=== PATIENT | female | born 1960 | race Caucasian/White ===

== ENCOUNTER 2019-11-07 23:12 | Inpatient (IN) | payer MEDICARE, MEDICAID, SELFPAY ==
--- NOTE | ~2019-11-07 | XR_ITS ---
XR chest 1V portable 11/08/2019 01:13 Indication: Altered mental status Procedure: AP view of the chest Comparison: Comparison to multiple prior studies sequentially, with oldest reviewed study dated 12/2014. Findings: Heart size normal. No focal air space disease, pulmonary edema, pleural effusion or suspect ed pneumothorax. No acute osseous abnormality. There are cholecystectomy clips. There is a TIPS shunt . Impression: 1: No acute cardiopulmonary disease. Reviewed, dictated and finalized at location A. Impression: 1: No acute cardiopulmonary disease.
--- NOTE | ~2019-11-07 | CT_ITS ---
EXAMINATION: CT abdomen pelvis wo con DATE: 11/08/2019 01:22 INDICATION: Altered mental status. Vomiting. TECHNIQUE: Computed tomography (CT) of the abdomen and pelvis was performed without intravenous contr ast. The dose-length product was 408.59 mGy-cm. Automated exposure control and iterative reconstructi on technique were employed. COMPARISON: CT dated 07/11/2019 FINDINGS: There is right middle lobe and lower lobe atelectasis. Heart size normal. No significant pl eural or pericardial effusion. There is cirrhosis of the liver. There is splenomegaly. Moderate ascites. There is a TIPS shunt. There are changes of gastric bypass surgery. Nonobstructive bowel gas pattern. Nonspecific fluid josh ection left groin measuring 6.5 x 4.3 x 1.4 cm, significantly decreased in size compared with prior e xamination. Status post cholecystectomy. No renal stones. No hydronephrosis. Mild urinary bladder dis tention. Status post hysterectomy. No free air. Segments of colon appear mildly thick-walled, althoug h this is likely attributable to underdistention rather than colitis. IMPRESSION: 1. Cirrhosis of the liver with splenomegaly, consistent with portal hypertension. TIPS shunt present. 2: Moderate ascites. Reviewed, dictated and finalized at location A. IMPRESSION: 1. Cirrhosis of the liver with splenomegaly, consistent with portal hypertensio n. TIPS shunt present. 2: Moderate ascites.
--- NOTE | ~2019-11-07 | XR_ITS ---
XR abdomen NG/feed tube insert INDICATION: Evaluate NG tube position. TECHNIQUE: Limited KUB perform for evaluating NG tube . COMPARISON: 05/24/2016 FINDINGS: NG tube tip in the stomach. There are cholecystectomy clips. There is a no shunt. Visualize d bowel gas pattern is unremarkable. IMPRESSION: 1: NG tube tip in the stomach. Reviewed, dictated and finalized at location A.
--- NOTE | ~2019-11-07 | CT_ITS ---
EXAMINATION: CT brain wo con DATE: 11/08/2019 01:22 INDICATION: Altered mental status. Vomiting. TECHNIQUE: Computed tomography (CT) of the head was performed without intravenous contrast. The dose- length product was 605.33 mGy-cm. The mA was adjusted according to patient size. Iterative reconstruc tion technique was employed. COMPARISON: CT dated 08/08/2019 FINDINGS: No acute intracranial hemorrhage, infarction, mass or mass effect. No ventriculomegaly or m idline shift. There are scattered mild periventricular and subcortical white matter changes, most lik collette related to small vessel ischemic disease (microangiopathy). No ventriculomegaly or midline shift. Intracranial atherosclerosis. Paranasal sinuses and mastoids are pneumatized. No depressed skull fra ctures. IMPRESSION: 1. No acute intracranial abnormality. Reviewed, dictated and finalized at location A.
[2019-11-07 23:10] VITALS: BP 108/64; PULSE 94; RESP 20; TEMP 36.6; O2SAT 100
--- NOTE | 2019-11-07 23:14 | ED.AMS ---
HPI - Altered Mental Status General Chief Complaint: Altered Mental Status Stated Complaint: n/v/alt mental Time Seen by Provider: 11/07/19 23:14 Source: patient and RN notes reviewed Mode of arrival: EMS Limitations: other (Poor historian) History of Present Illness HPI narrative: A 59 y/o female presents to the ED via EMS d/t AMS. The pt reports N/V and a diffuse YOUNG beginning today. The pt is a poor historian and is unable to state how long she has been having AMS for. She denies any SOB, CP, ABD pain, and any other medical complaints at this time. MD complaint: altered mental status Onset (ago): unknown Context: unknown Associated symptoms: headaches (diffuse) and nausea/vomiting Related Data Home Medications Medication Instructions Recorded Confirmed cyanocobalamin (vitamin B-12) 1,000 mcg IM MONTHLY 07/09/19 11/08/19 ergocalciferol (vitamin D2) 50,000 unit PO WEEKLY 07/09/19 11/08/19 hydrocodone-acetaminophen 1 tablet PO Q6H PRN 07/09/19 11/08/19 levothyroxine 112 mcg PO DAILY 07/09/19 11/08/19 ondansetron 8 mg PO Q12H PRN 07/09/19 11/08/19 spironolactone 100 mg PO QAM 07/09/19 11/08/19 valacyclovir 500 mg PO DAILY 07/09/19 11/08/19 furosemide 40 mg PO BID 07/15/19 11/08/19 rifaximin 550 mg PO BID 07/15/19 11/08/19 acetaminophen 500 mg PO Q6H PRN 11/08/19 diphenhydramine HCl 25 mg PO HS PRN 11/08/19 diphenhydramine HCl [Benadryl] 25 mg PO Q6H PRN 11/08/19 11/08/19 escitalopram oxalate 10 mg PO DAILY 11/08/19 11/08/19 lactulose 30 ml PO TID 11/08/19 11/08/19 melatonin 5 mg PO HS PRN 11/08/19 11/08/19 Allergies Allergy/AdvReac Type Severity Reaction Status Date / Time cephalexin Allergy Unknown Verified 09/25/16 11:28 gadobenic acid Allergy Unknown Verified 07/10/19 09:59 [From CONTRAST-MRI] Iodinated Contrast Media Allergy Unknown Verified 07/10/19 09:59 iohexol Allergy Unknown Verified 07/10/19 09:59 [From CONTRAST - CT, XRAY] ketorolac Allergy Unknown Verified 09/25/16 11:28 Penicillins Allergy Unknown Verified 09/25/16 11:28 Sulfa (Sulfonamide Allergy Unknown Verified 09/25/16 11:28 Antibiotics) sulfamethoxazole Allergy Unknown Verified 09/25/16 11:28 trimethoprim Allergy Unknown Verified 09/25/16 11:28 Review of Systems Review of Systems: All systems reviewed & are unremarkable except as noted in HPI and below Constitutional: Constitutional: Denies fatigue and Denies fever(s) Eyes: Eyes: Denies blurry vision ENT: Denies nasal congestion and Denies sinus pressure Cardiovascular: Cardiovascular: Denies chest pain, Denies rapid heart rate, Denies leg edema and Denies dyspnea Respiratory: Respiratory: Denies hemoptysis and Denies dyspnea Gastrointestinal: Gastrointestinal: Denies abdominal pain, Denies melena, Reports nausea and Reports vomiting Musculoskeletal: Musculoskeletal: Denies numbness Neurologic: Denies Abnormal speech present, Reports headache(s) (diffuse), Denies focal weakness, Denies numbness and Reports other (AMS) Endocrine: Endocrine: Denies fatigue PMFSH Past Medical History Medical History Anemia Anxiety Arthritis Bronchitis chronic CAD (coronary artery disease) CHF (congestive heart failure) Depression Early cataracts, bilateral GERD (gastroesophageal reflux disease) GI bleed History of heart attack Hx of cataract Hypothyroid Liver disease Lupus erythematosus ANAYA (nonalcoholic steatohepatitis) (Unknown) Psoriasis Rectocele Shingles Surgical History Surgical History H/O rectocele repair History of bladder surgery bladder tie up History of cholecystectomy History of gastric bypass History of hysterectomy History of tonsillectomy Hx of cardiac cath Previous section Social History Social History Smoking status: Never smoker Alcohol intake: never Substance use: never Gender identity (if verbal
--- NOTE | 2019-11-07 23:19 | ECG_ITS ---
Measurements Intervals [place] Rate: 94 P: 71 GA: 172 QRS: -83 QRSD: 146 T: 66 QT: 409 QTc: 512 Interpretive Statements SINUS RHYTHM RIGHT BUNDLE BRANCH BLOCK LEFT ANTERIOR FASCICULAR BLOCK CANNOT RULE OUT SEPTAL INFARCT, AGE INDETERMINATE BASELINE WANDER- I, AVL ABNORMAL ECG Electronically Signed On 11-08-2019 7:58:48 CDT by Amauri Petit D.O.
[2019-11-07] MEDS: ONDANSETRON INJ 4 MG/2 ML VIAL (23:26)
[2019-11-07] MEDS: SODIUM CHLORIDE 0.9% IV 2,000 ML 999 ML IV CONT (23:26)
[2019-11-07 23:32] LABS: Basophils Absolute Auto 0.1 K/mm3 (0.0-0.1); Basophils Percent Auto 0.6 % (0.2-1.2); Eosinophils Absolute Auto 0.1 K/mm3 (0-0.3); Eosinophils Percent Auto 0.6 % (0-4.4); Hematocrit 41.8 % (37.0-47.0); Hemoglobin 14.1 g/dL (12.0-15.0); Immature Granulocyte Absolute 0.04 K/mm3 (0.00-0.031); Immature Granulocyte Percent A 0.5 % (0-0.5); Lymphocytes Absolute Auto 0.71 K/mm3 (0.9-3.2); Lymphocytes Percent Auto 8.9 % (18.3-44.2); Mean Corpuscular HGB Conc 33.7 g/dl (32-36); Mean Corpuscular Hemoglobin 31.1 pg (26-34); Mean Corpuscular Volume 92.3 fl (80-100); Monocytes Absolute Auto 0.6 K/mm3 (0.1-0.6); Monocytes Percent Auto 7.4 % (2.6-8.5); Neutrophils Absolute Auto 6.6 K/mm3 (1.3-6.7); Platelet Count Result 118 k/mm3 (150-375); Red Blood Count 4.53 M/mm3 (4.2-5.4); Red Cell Distribution Width 15.4 % (11.5-14.5)
[2019-11-07] MEDS: CALCIUM GLUCONATE 1,000 MG/10 ML VIAL 1000 MG IV PUSH (23:39)
[2019-11-07 23:56] LABS: Alveolar/Arterial O2 Gradient 19.3 mmHg; Base Excess ABG -7.2 mEq/l (+/-2.0); Fractional Inspired Oxygen 21 %; HCO3 ABG 15.2 mEq/l (22.0-26.0); Oxygen Content ABG 18.1 %vol (16.0-22.0); Oxygen Saturation ABG 97.9 % (95.0-100.0); Oxyhemoglobin 96.3 % THb (90.0-100.0); PO2 ABG 102.2 mmHg (80.0-100.0); PO2 FiO2 Ratio Arterial Blood 4.87 %; Total Hemoglobin 13.3 g/dL (12.0-18.0); pH ABG 7.428 (7.350-7.450)
[2019-11-07 23:57] LABS: Device ROOM AIR; Modified Allen's Test Unable to perform; PCO2 ABG 23.6 mmHg (35.0-45.0); Site Drawn RIGHT RADIAL
[2019-11-08] VITALS (11 sets, daily range): BP systolic 105–122; BP diastolic 51–60; PULSE 77–96; RESP 16–20; TEMP 36.2–37.1; O2SAT 97–100; BMI 24.7
[2019-11-08] MEDS: PROMETHAZINE HCL 25 MG/ML AMPUL 12.5 MG IV PUSH
[2019-11-08 00:34] LABS: Ammonia 266 umol/L (9-30)
[2019-11-08 00:36] LABS: Alanine Aminotransferase 46 U/L (4-35); Albumin Level 3.4 g/dL (3.5-5.1); Alkaline Phosphatase 144 U/L (38-126); Aspartate Amino Transferase 47 U/L (14-36); Bilirubin,Total 1.9 mg/dL (0.2-1.3); Blood Urea Nitrogen 31 mg/dL (7-17); Calcium 8.6 mg/dL (8.4-10.2); Carbon Dioxide 19 mmol/L (22-30); Chloride 103 mmol/L (98-107); Estimated Glomerular Filt Rate 42; Glucose 205 mg/dL (65-105); Potassium 5.9 mmol/L (3.4-5.0); Sodium 134 mmol/L (137-145)
[2019-11-08 00:37] LABS: Add Urine Microscopic? NO; Appearance Urine Clear (Clear); Bilirubin Urine Negative (Negative); Blood Urine Negative (Negative); Color Urine Yellow (Yellow); Glucose Urine UA Negative (Negative); Ketones Urine Negative (Negative); Leukocyte Esterase Ur Negative LEU/UL (Negative); Nitrate Urine Negative (Negative); Protein Urine Negative (Negative); Specific Grav Ur 1.012 (1.001-1.035); Urobilinogen Urine Negative mg/dL (<2.0)
[2019-11-08 00:39] LABS: Lactic Acid Reflex 4.2 mmol/L (0.7-2.1)
[2019-11-08 00:44] LABS: Amphetamine Screen Urine Negative (Negative); Barbiturate Screen Urine Negative (Negative); Benzodiazepines Screen Urine Negative (Negative); Cannabinoid Screen Urine Negative (Negative); Cocaine Screen Urine Negative (Negative); Methadone Screen Urine Negative (Negative); Opiate Screen Urine Negative (Negative); Phencyclidine Screen Urine Negative (Negative)
[2019-11-08 00:48] LABS: Troponin I < 0.012 ng/mL (0.000-0.034)
[2019-11-08 01:05] LABS: INR 1.5; Prothrombin Time 17.7 Seconds (11.1-14.7)
[2019-11-08 01:06] LABS: Partial Thromboplastin Time 26.9 SECONDS (22.3-36.8)
[2019-11-08] MEDS: SODIUM CHLORIDE 0.9% IV 1,000 ML 999 ML IV CONT (01:56)
[2019-11-08] MEDS: DEXTROSE 50% 25 GM/50 ML SYRINGE IV PUSH (01:56)
[2019-11-08] MEDS: SODIUM BICARBONATE 8.4% 50 MEQ/50 ML VIAL IV PUSH (01:57)
[2019-11-08] MEDS: INSULIN HUMAN REGULAR (*BKC) 100 UNITS/ML 10 UNITS IV PUSH (01:57)
[2019-11-08 02:33] LABS: Glucose Point of Care 263 (65-105)
[2019-11-08 02:33] LABS: Glucose Point of Care 207 (65-105)
[2019-11-08 03:21] LABS: Reflex Lactic Acid Yes or No Add Lactic
[2019-11-08 04:35] LABS: Lactic Acid 3.2 mmol/L (0.7-2.1)
[2019-11-08] MEDS: LACTULOSE 20 GM/30 ML UDC PO ×4 (04:46→17:14)
--- NOTE | 2019-11-08 04:57 | PC.NURSE ---
This patient, Kelle Hernadez, was admitted to IMU Room 232-01. Patient/family oriented to hospital policies and general routines including ID bracelet, bed and alarms, visiting hours, pain management, procedures, bathroom and other care routines, personal items, smoking policy, room service/diet, and visiting hours. Valuables list has been completed. Information on how to activate the Rapid Response Team has been discussed. Patient/Family are encouraged to report perceived risks to care and to ask questions if they do not understand what they are told or what they should do.
[2019-11-08 05:03] LABS: Ammonia 39 umol/L (9-30)
[2019-11-08] MEDS: SODIUM CHLORIDE 0.9% IV 1,000 ML 125 ML IV CONT (05:33)
[2019-11-08 07:01] LABS: Glucose Point of Care 177 (65-105)
--- NOTE | 2019-11-08 08:56 | PM.IMHP ---
H&P: HPI History of Present Illness Chief complaint: HEPATIC ENCEPHALOPATHY,ACUTE RENAL FAILURE Narrative: Date and Time of Service of History & Physical: November 08, 2019 at 8:45 a.m. Date and Time of Admission Order: November 08, 2019 at 3:19 a.m.. Chief Complaint: Altered mental status, nausea, vomiting, abdominal pain. History of present Illness: Kelle Hernadez is a 59 year old female with known cirrhosis secondary to ANAYA, CAD, CHF, GERD, hypothyroidism, and lupus was brought to the emergency by EMS from home due to altered mental status, nausea, vomiting and abdominal pain. On presentation to the emergency room, patient was unable to give much information. She was noted to have significantly elevated ammonia receiving dose of lactulose in the ER. She was also noted to have elevated potassium with appropriate treatment given. Patient is now the IMU and able to recall all information leading to her hospitalization. Patient reports she developed headache approximately 4:00 p.m. yesterday. At 6:00 p.m. she decided to go to bed. At that time she felt sick and having abdominal pain, nausea vomiting. She was unable to make it to the restroom but use bedside commode instead. She required help from her to get to the bedside commode. She reports having diarrhea at that time. Of note, she had had 5 bowel movements in the morning to not take any lactulose during the day as a result. After using bedside commode, her helped her to the living room where she remained for 1 hour. She then tried to return to bed when she developed nausea and vomiting once again. wanted to call EMS with patient initially refusing but then she decided to have her call. She reports no recent fever, chills or cough. No chest pain or shortness of breath. She currently has been no abdominal pain, nausea or vomiting. She is thirsty. NG tube was placed in the ER patient would like removed this time period and urinary symptoms. She does report she has been follow with gastroenterology at [facility] and was last seen at the end of September 2019. She does have history of TIPS procedure. Given her findings, she was admitted for further evaluation and treatment. Review of Systems Review of Systems: All systems reviewed & are unremarkable except as noted in HPI and below Constitutional: Constitutional: Denies chills and Denies fever(s) Eyes: Eyes: Denies blurry vision and Denies diplopia ENT: Denies dysphagia, Denies nasal congestion and Denies nasal discharge Cardiovascular: Cardiovascular: Denies chest pain and Denies palpitations Respiratory: Respiratory: Denies cough and Denies dyspnea Gastrointestinal: Gastrointestinal: Reports abdominal pain (At time of presentation but now resolved), Reports nausea (At time of presentation but now resolved) and Reports vomiting (At time of presentation but now resolved) Genitourinary: Genitourinary: Denies hematuria, Denies nocturia and Denies dysuria Musculoskeletal: Musculoskeletal: Reports no additional musculoskeletal complaints Integumentary/Breasts: Skin/Breast: Denies rash Neurologic: Reports headache(s) (yesterday but none now) Psychiatric: Psychiatric: Denies anxiety, Denies confusion and Denies depression Endocrine: Endocrine: Reports no additional endocrine complaints Hematologic/Lymphatic: Hematologic/Lymphatic: Reports no additional hematologic/lymphatic complaints Allergic/Immunologic: Allergic/Immunologic: Reports no additional allergic/immunologic complaints [facility] Past Medical History Medical History (Updated 11/08/19 @ 09:16 by Joanna Corona MD) Anemia Anxiety Arthritis Bronchitis chronic CAD (coronary artery disease) CHF (congestive heart failure) Depression Early cataracts, bilateral GERD (gastroesophageal reflux disease) GI bleed History of heart attack Hx of cataract Hypothyroid Liver disease Lupus erythematosus ANAYA (nonalcoholic steatohep
[2019-11-08] MEDS: rifAXIMin 550 MG TABLET PO ×2 (09:33→17:14)
[2019-11-08] MEDS: LEVOTHYROXINE SODIUM 112 MCG TABLET PO (09:34)
[2019-11-08] MEDS: ESCITALOPRAM OXALATE 10 MG TABLET PO (09:34)
[2019-11-08] MEDS: VALACYCLOVIR HCL 500 MG TABLET PO (09:34)
[2019-11-08] MEDS: FAMOTIDINE 20 MG TABLET PO ×2 (09:53→21:23)
[2019-11-08 11:13] LABS: Blood Urea Nitrogen 24 mg/dL (7-17); Calcium 7.7 mg/dL (8.4-10.2); Carbon Dioxide 16 mmol/L (22-30); Chloride 107 mmol/L (98-107); Estimated CRCL calculation 33 ml/min; Estimated Glomerular Filt Rate 46; Glucose 380 mg/dL (65-105); Potassium 4.8 mmol/L (3.4-5.0); Sodium 134 mmol/L (137-145)
[2019-11-08 14:00] LABS: Glucose Point of Care 334 (65-105)
--- NOTE | 2019-11-08 14:56 | PC.NURSE ---
This patient, Kelle Hernadez, was transferred to [ [address] [place] [address]] on 11/08/19 at 1456. Personal belongings sent with patient. Belongings list checked and signed with receiving [ ]. Report given to [ridge [email or web address] ]. Appropriate documentation sent with patient.
[2019-11-08] MEDS: SODIUM CHLORIDE 0.9% IV 1,000 ML 75 ML IV CONT (15:01)
--- NOTE | 2019-11-08 15:01 | PC.NURSE ---
This patient, Kelle Hernadez, was received from IMU on 11/08/19 at 1501. Personal belongings list checked and signed. Patient/family oriented to unit policies and routines
[2019-11-08 17:29] LABS: Glucose Point of Care 178 (65-105)
[2019-11-08 21:40] LABS: Glucose Point of Care 222 (65-105)
[2019-11-09] MEDS: SODIUM CHLORIDE 0.9% IV 1,000 ML 75 ML IV CONT (04:28)
[2019-11-09 05:20] LABS: Ammonia < 9 umol/L (9-30)
[2019-11-09 05:21] LABS: Lactic Acid 1.2 mmol/L (0.7-2.1)
[2019-11-09 05:24] LABS: Alanine Aminotransferase 45 U/L (4-35); Albumin Level 2.5 g/dL (3.5-5.1); Alkaline Phosphatase 102 U/L (38-126); Aspartate Amino Transferase 48 U/L (14-36); Bilirubin,Total 1.7 mg/dL (0.2-1.3); Blood Urea Nitrogen 20 mg/dL (7-17); Calcium 7.6 mg/dL (8.4-10.2); Carbon Dioxide 18 mmol/L (22-30); Chloride 108 mmol/L (98-107); Estimated CRCL calculation 43 ml/min; Estimated Glomerular Filt Rate > 60; Glucose 140 mg/dL (65-105); Potassium 4.4 mmol/L (3.4-5.0); Sodium 131 mmol/L (137-145)
[2019-11-09 06:00] VITALS: BP 112/59; PULSE 67; RESP 16; TEMP 36.1; O2SAT 100
[2019-11-09] MEDS: LEVOTHYROXINE SODIUM 112 MCG TABLET PO (06:42)
[2019-11-09 07:05] LABS: Basophils Absolute Auto 0.1 K/mm3 (0.0-0.1); Basophils Percent Auto 0.9 % (0.2-1.2); Eosinophils Absolute Auto 0.2 K/mm3 (0-0.3); Eosinophils Percent Auto 2.6 % (0-4.4); Hematocrit 31.7 % (37.0-47.0); Hemoglobin 10.7 g/dL (12.0-15.0); Immature Granulocyte Absolute 0.02 K/mm3 (0.00-0.031); Immature Granulocyte Percent A 0.3 % (0-0.5); Lymphocytes Absolute Auto 1.26 K/mm3 (0.9-3.2); Lymphocytes Percent Auto 19.4 % (18.3-44.2); Mean Corpuscular HGB Conc 33.8 g/dl (32-36); Mean Corpuscular Hemoglobin 31.5 pg (26-34); Mean Corpuscular Volume 93.2 fl (80-100); Mean Platelet Volume 10.7 fl (7.4-10.4); Monocytes Absolute Auto 0.8 K/mm3 (0.1-0.6); Neutrophils Absolute Auto 4.2 K/mm3 (1.3-6.7); Neutrophils Percent Auto 64.8 % (45.5-73.1); Platelet Count Result 78 k/mm3 (150-375); Red Cell Distribution Width 15.5 % (11.5-14.5); White Blood Count 6.5 K/mm3 (4.5-10.0)
[2019-11-09 07:40] LABS: Glucose Point of Care 109 (65-105)
[2019-11-09] MEDS: LACTULOSE 20 GM/30 ML UDC PO ×3 (09:04→16:57)
[2019-11-09] MEDS: rifAXIMin 550 MG TABLET PO ×2 (09:05→16:57)
[2019-11-09] MEDS: VALACYCLOVIR HCL 500 MG TABLET PO (09:05)
[2019-11-09] MEDS: ESCITALOPRAM OXALATE 10 MG TABLET PO (09:05)
[2019-11-09] MEDS: FAMOTIDINE 20 MG TABLET PO ×2 (09:05→20:25)
--- NOTE | 2019-11-09 10:04 | PM.IMPN ---
Progress Note: A&P Assessment and Plan (1) Acute hepatic encephalopathy: Code(s): K72.00 - Acute and subacute hepatic failure without coma Status: Resolved Assessment and Plan: Suspect result of not taking lactulose on day of presentation. Ammonia level now less than 9 with patient on home lactulose. Continue home rifaximin. Mental status back to normal. Now on low-sodium diet. Will continue to monitor but unable to discharge today as now has 1 of 2 positive blood cultures. (2) Acute hyperkalemia: Code(s): E87.5 - Hyperkalemia Status: Acute Assessment and Plan: Potassium 5.9 on admission. Did receive IV calcium carbonate and IV sodium bicarbonate in addition to lactulose. Potassium now stable at 4.4. Will monitor while here. (3) Acute renal failure (ARF): Qualifiers: Acute renal failure type: unspecified Qualified Code(s): N17.9 - Acute kidney failure, unspecified Code(s): N17.9 - Acute kidney failure, unspecified Status: Acute Assessment and Plan: Resolved. Creatinine 0.90 today. Resume home furosemide and spironolactone to prevent problems with cirrhosis and ascites. Stop IV fluids. will continue to monitor. (4) Bacteremia: Code(s): R78.81 - Bacteremia Status: Acute Assessment and Plan: Blood cultures drawn on admission due to altered mental status. Patient with past history of coagulase-negative staph infection in June 2019. One of 2 blood cultures currently positive for gram-positive cocci in clusters. IV vancomycin started. Await final culture results. Advised patient possible contaminant but also possible infection. If needed, will consult Infectious Disease. (5) Cirrhosis: Onset Date: Unknown Qualifiers: Ascites presence: with ascites Hepatic cirrhosis type: unspecified hepatic cirrhosis Qualified Code(s): K74.60 - Unspecified cirrhosis of liver; R18.8 - Other ascites Code(s): K74.60 - Unspecified cirrhosis of liver Status: Acute Assessment and Plan: Result of ANAYA. Has had TIPS procedure. Does follow with gastroenterology at [facility]. Treatment of acute issues as noted above. Continuing lactulose and rifaximin. Restarting diuretics as noted. (6) CHF (congestive heart failure): Qualifiers: Heart failure type: diastolic Heart failure chronicity: chronic Qualified Code(s): I50.32 - Chronic diastolic (congestive) heart failure Code(s): I50.9 - Heart failure, unspecified Status: Acute Assessment and Plan: No exacerbation at this time. Restart home furosemide and spironolactone. Remains on room air. Will monitor. (7) CAD (coronary artery disease): Qualifiers: Coronary Disease-Associated Artery/Lesion type: [place] vs. transplanted heart: [place] heart Associated angina: without angina Qualified Code(s): I25.10 - Atherosclerotic heart disease of [place] coronary artery without angina pectoris Code(s): I25.10 - Atherosclerotic heart disease of [place] coronary artery without angina pectoris Status: Acute Assessment and Plan: No acute issue. Stable. Will monitor. (8) GERD (gastroesophageal reflux disease): Qualifiers: Esophagitis presence: esophagitis presence not specified Qualified Code(s): K21.9 - Gastro-esophageal reflux disease without esophagitis Code(s): K21.9 - Gastro-esophageal reflux disease without esophagitis Status: Acute Assessment and Plan: Not on medication at home. Will continue Pepcid while here. (9) Hypothyroid: Qualifiers: Hypothyroidism type: unspecified Qualified Code(s): E03.9 - Hypothyroidism, unspecified Code(s): E03.9 - Hypothyroidism, unspecified Status: Acute Assessment and Plan: Will continue home levothyroxine. (10) DVT prophylaxis: Code(s): Z29.9 - Encounter for prophylactic m
[2019-11-09] MEDS: FUROSEMIDE 40 MG TABLET PO ×2 (10:44→16:56)
[2019-11-09] MEDS: SPIRONOLACTONE 50 MG TABLET 100 MG PO (12:36)
[2019-11-09] MEDS: INSULIN ASPART (*BKC) 100 UNITS/ML SUB-Q (12:45)
[2019-11-09 13:35] LABS: Glucose Point of Care 250 (65-105)
[2019-11-09 14:00] VITALS: BP 125/58; PULSE 87; RESP 16; TEMP 36.9; O2SAT 100
[2019-11-09 17:19] LABS: Glucose Point of Care 117 (65-105)
[2019-11-09 20:00] VITALS: PULSE 87; RESP 16; O2SAT 100
[2019-11-09 20:36] LABS: Glucose Point of Care 188 (65-105)
[2019-11-09 22:00] VITALS: BP 109/57; PULSE 83; RESP 16; TEMP 36.9; O2SAT 98
[2019-11-10 05:49] LABS: Alanine Aminotransferase 46 U/L (4-35); Albumin Level 2.3 g/dL (3.5-5.1); Alkaline Phosphatase 100 U/L (38-126); Aspartate Amino Transferase 48 U/L (14-36); Bilirubin,Total 2.3 mg/dL (0.2-1.3); Blood Urea Nitrogen 15 mg/dL (7-17); Calcium 7.6 mg/dL (8.4-10.2); Carbon Dioxide 21 mmol/L (22-30); Chloride 104 mmol/L (98-107); Estimated CRCL calculation 43 ml/min; Estimated Glomerular Filt Rate > 60; Glucose 98 mg/dL (65-105); Potassium 3.9 mmol/L (3.4-5.0); Sodium 128 mmol/L (137-145)
[2019-11-10 06:00] VITALS: BP 105/55; PULSE 58; RESP 16; TEMP 36.5; O2SAT 95
[2019-11-10] MEDS: LEVOTHYROXINE SODIUM 112 MCG TABLET PO (06:14)
[2019-11-10] MEDS: LACTULOSE 20 GM/30 ML UDC PO ×3 (08:13→16:52)
[2019-11-10] MEDS: SPIRONOLACTONE 50 MG TABLET 100 MG PO (08:14)
[2019-11-10] MEDS: FUROSEMIDE 40 MG TABLET PO ×2 (08:14→16:52)
[2019-11-10] MEDS: rifAXIMin 550 MG TABLET PO ×2 (08:14→16:52)
[2019-11-10] MEDS: VALACYCLOVIR HCL 500 MG TABLET PO (08:14)
[2019-11-10] MEDS: ESCITALOPRAM OXALATE 10 MG TABLET PO (08:14)
[2019-11-10] MEDS: FAMOTIDINE 20 MG TABLET PO ×2 (08:14→20:56)
[2019-11-10 09:26] LABS: Glucose Point of Care 102 (65-105)
--- NOTE | 2019-11-10 11:40 | PM.IMPN ---
Progress Note: A&P Assessment and Plan (1) Acute hepatic encephalopathy: Code(s): K72.00 - Acute and subacute hepatic failure without coma Status: Resolved Assessment and Plan: Suspect result of not taking lactulose on day of presentation. Last ammonia level less than 9. Will continue home lactulose and rifaximin. Mental status back to normal. Continue low-sodium diet. Awaiting results of blood cultures in order to determine when discharge is appropriate. Will continue to monitor. (2) Bacteremia: Code(s): R78.81 - Bacteremia Status: Acute Assessment and Plan: Blood cultures drawn on admission due to altered mental status. Patient with past history of coagulase-negative staph infection in June 2019. 1 of 2 blood cultures currently positive for gram-positive cocci in clusters with final results still pending. Will continue IV vancomycin until final culture results are available. Patient aware may need infectious disease consult if both cultures are positive and/or depending on bacteria grown. Will continue to monitor for now. WBC is normal. (3) Acute hyperkalemia: Code(s): E87.5 - Hyperkalemia Status: Acute Assessment and Plan: Potassium 5.9 on admission. Received IV calcium carbonate and IV sodium bicarbonate in addition to lactulose. Potassium now remains normal at 3.9 today. Will continue to monitor. (4) Acute renal failure (ARF): Qualifiers: Acute renal failure type: unspecified Qualified Code(s): N17.9 - Acute kidney failure, unspecified Code(s): N17.9 - Acute kidney failure, unspecified Status: Acute Assessment and Plan: Resolved. Creatinine stable and unchanged at 0.90 today. Off IV fluids. Will monitor. (5) Cirrhosis: Onset Date: Unknown Qualifiers: Ascites presence: with ascites Hepatic cirrhosis type: unspecified hepatic cirrhosis Qualified Code(s): K74.60 - Unspecified cirrhosis of liver; R18.8 - Other ascites Code(s): K74.60 - Unspecified cirrhosis of liver Status: Acute Assessment and Plan: Result of ANAYA. Has had TIPS procedure. Does follow with gastroenterology at [facility]. Treatment of acute issues as noted above. Continuing home lactulose and rifaximin. Home furosemide and spironolactone resumed on 11/09/2019 and will continue. Will monitor. (6) CHF (congestive heart failure): Qualifiers: Heart failure chronicity: chronic Heart failure type: diastolic Qualified Code(s): I50.32 - Chronic diastolic (congestive) heart failure Code(s): I50.9 - Heart failure, unspecified Status: Acute Assessment and Plan: Stable without exacerbation at this time. Continue home furosemide and spironolactone. Remains on room air. Will monitor. (7) CAD (coronary artery disease): Qualifiers: Associated angina: without angina Coronary Disease-Associated Artery/Lesion type: [place] artery [place] vs. transplanted heart: [place] heart Qualified Code(s): I25.10 - Atherosclerotic heart disease of [place] coronary artery without angina pectoris Code(s): I25.10 - Atherosclerotic heart disease of [place] coronary artery without angina pectoris Status: Acute Assessment and Plan: No acute issue. Stable. Will monitor. (8) GERD (gastroesophageal reflux disease): Qualifiers: Esophagitis presence: esophagitis presence not specified Qualified Code(s): K21.9 - Gastro-esophageal reflux disease without esophagitis Code(s): K21.9 - Gastro-esophageal reflux disease without esophagitis Status: Acute Assessment and Plan: Not on medication at home. Will continue Pepcid while here. (9) Hypothyroid: Qualifiers: Hypothyroidism type: unspecified Qualified Code(s): E03.9 - Hypothyroidism, unspecified Code(s): E03.9 - Hypothyroidism, unspecified Status: Acute Assessment a
[2019-11-10 11:45] LABS: Glucose Point of Care 164 (65-105)
[2019-11-10 14:00] VITALS: BP 107/56; PULSE 73; RESP 18; TEMP 36.7; O2SAT 100
[2019-11-10 18:14] LABS: Glucose Point of Care 182 (65-105)
[2019-11-10 20:00] VITALS: PULSE 73; RESP 18; O2SAT 100
[2019-11-10 20:19] LABS: Glucose Point of Care 189 (65-105)
[2019-11-10 22:00] VITALS: BP 107/55; PULSE 72; RESP 20; TEMP 36.4; O2SAT 100
[2019-11-11 05:51] VITALS: BP 110/50; PULSE 80; RESP 20; TEMP 36.8; O2SAT 100
[2019-11-11] MEDS: LEVOTHYROXINE SODIUM 112 MCG TABLET PO (05:56)
[2019-11-11 07:56] LABS: Glucose Point of Care 109 (65-105)
[2019-11-11] MEDS: VALACYCLOVIR HCL 500 MG TABLET PO (08:03)
[2019-11-11] MEDS: rifAXIMin 550 MG TABLET PO (08:04)
[2019-11-11] MEDS: LACTULOSE 20 GM/30 ML UDC PO ×2 (08:04→12:09)
[2019-11-11] MEDS: SPIRONOLACTONE 50 MG TABLET 100 MG PO (08:04)
[2019-11-11] MEDS: ESCITALOPRAM OXALATE 10 MG TABLET PO (08:04)
[2019-11-11] MEDS: FUROSEMIDE 40 MG TABLET PO (08:04)
[2019-11-11] MEDS: FAMOTIDINE 20 MG TABLET PO (08:04)
[2019-11-11 08:46] LABS: Alanine Aminotransferase 54 U/L (4-35); Albumin Level 2.9 g/dL (3.5-5.1); Alkaline Phosphatase 127 U/L (38-126); Aspartate Amino Transferase 59 U/L (14-36); Bilirubin,Total 1.8 mg/dL (0.2-1.3); Blood Urea Nitrogen 16 mg/dL (7-17); Calcium 7.7 mg/dL (8.4-10.2); Carbon Dioxide 23 mmol/L (22-30); Chloride 100 mmol/L (98-107); Estimated CRCL calculation 43 ml/min; Estimated Glomerular Filt Rate > 60; Glucose 110 mg/dL (65-105); Potassium 3.8 mmol/L (3.4-5.0); Sodium 131 mmol/L (137-145)
--- NOTE | 2019-11-11 11:10 | PM.IMPN ---
Progress Note: A&P Assessment and Plan (1) Acute hepatic encephalopathy: Code(s): K72.00 - Acute and subacute hepatic failure without coma Status: Resolved Assessment and Plan: Ammonia levels normal. Pt has good cognition. Awaiting results of blood cultures prior to discharge. (2) Bacteremia: Code(s): R78.81 - Bacteremia Status: Acute Assessment and Plan: Blood cultures drawn on admission due to altered mental status. Patient with past history of coagulase-negative staph infection in June 2019. Awaiting final results still pending. Continue iv vancomycin for now. (3) Acute hyperkalemia: Code(s): E87.5 - Hyperkalemia Status: Resolved Assessment and Plan: Potassium resolved today. (4) Acute renal failure (ARF): Qualifiers: Acute renal failure type: unspecified Qualified Code(s): N17.9 - Acute kidney failure, unspecified Code(s): N17.9 - Acute kidney failure, unspecified Status: Acute Assessment and Plan: Resolved. (5) Cirrhosis: Onset Date: Unknown Qualifiers: Ascites presence: with ascites Hepatic cirrhosis type: unspecified hepatic cirrhosis Qualified Code(s): K74.60 - Unspecified cirrhosis of liver; R18.8 - Other ascites Code(s): K74.60 - Unspecified cirrhosis of liver Status: Acute Assessment and Plan: Result of ANAYA. Has had TIPS procedure. Does follow with gastroenterology at [facility]. Continuing home lactulose and rifaximin. Home furosemide and spironolactone resumed on 11/09/2019. Sodium is low secondary to diuretics. (6) CHF (congestive heart failure): Qualifiers: Heart failure type: diastolic Heart failure chronicity: chronic Qualified Code(s): I50.32 - Chronic diastolic (congestive) heart failure Code(s): I50.9 - Heart failure, unspecified Status: Acute Assessment and Plan: Stable without exacerbation. (7) CAD (coronary artery disease): Qualifiers: Coronary Disease-Associated Artery/Lesion type: [place] artery [place] vs. transplanted heart: [place] heart Associated angina: without angina Qualified Code(s): I25.10 - Atherosclerotic heart disease of [place] coronary artery without angina pectoris Code(s): I25.10 - Atherosclerotic heart disease of [place] coronary artery without angina pectoris Status: Acute Assessment and Plan: No acute issue. Stable. (8) GERD (gastroesophageal reflux disease): Qualifiers: Esophagitis presence: esophagitis presence not specified Qualified Code(s): K21.9 - Gastro-esophageal reflux disease without esophagitis Code(s): K21.9 - Gastro-esophageal reflux disease without esophagitis Status: Acute Assessment and Plan: Continue Pepcid. (9) Hypothyroid: Qualifiers: Hypothyroidism type: unspecified Qualified Code(s): E03.9 - Hypothyroidism, unspecified Code(s): E03.9 - Hypothyroidism, unspecified Status: Acute Assessment and Plan: Stable. Will continue home levothyroxine. (10) DVT prophylaxis: Code(s): Z29.9 - Encounter for prophylactic measures, unspecified Status: Acute Assessment and Plan: SCDs. Subjective Date/time seen: 11/11/19 11:10 Interval history: 59-year-old with known cirrhosis due to ANAYA, S/P TIPS procedure admitted with hepatic encephalopathy history states she did not take her lactulose on day of admission. Blood cultures were drawn showed gram-positive cocci but final culture still pending. On IV vancomycin. Pt appears stable today no compliants, not confused. Eager for discharge. Review of Systems Review of Systems: All systems reviewed & are unremarkable except as noted in HPI and below Constitutional: Constitutional: Denies chills and Denies fever(s) Cardiovascular: Cardiovascular: Denies chest pain and Denies palpitations Respiratory: Respiratory: De
[2019-11-11 11:50] LABS: Glucose Point of Care 182 (65-105)
--- NOTE | 2019-11-11 13:53 | PM.DS ---
DS: Diagnosis Admitting Diagnosis Admitting Diagnosis: Acute and subacute hepatic failure without coma Discharge Diagnosis (1) Acute hepatic encephalopathy: Code(s): K72.00 - Acute and subacute hepatic failure without coma Status: Resolved Assessment and Plan: Ammonia levels normal. Pt has good cognition. (2) Bacteremia: Code(s): R78.81 - Bacteremia Status: Acute Assessment and Plan: Blood cultures drawn on admission due to altered mental status. Patient with past history of coagulase-negative staph infection in June 2019. Preliminary BC are negative. Pt is stable for discharge. (3) Acute hyperkalemia: Code(s): E87.5 - Hyperkalemia Status: Resolved Assessment and Plan: Potassium resolved today. (4) Acute renal failure (ARF): Qualifiers: Acute renal failure type: unspecified Qualified Code(s): N17.9 - Acute kidney failure, unspecified Code(s): N17.9 - Acute kidney failure, unspecified Status: Acute Assessment and Plan: Resolved. (5) Cirrhosis: Onset Date: Unknown Qualifiers: Ascites presence: with ascites Hepatic cirrhosis type: unspecified hepatic cirrhosis Qualified Code(s): K74.60 - Unspecified cirrhosis of liver; R18.8 - Other ascites Code(s): K74.60 - Unspecified cirrhosis of liver Status: Acute Assessment and Plan: Result of ANAYA. Has had TIPS procedure. Does follow with gastroenterology at [facility]. Continuing home lactulose and rifaximin. Home furosemide and spironolactone resumed on 11/09/2019. Sodium is low secondary to diuretics. (6) CHF (congestive heart failure): Qualifiers: Heart failure type: diastolic Heart failure chronicity: chronic Qualified Code(s): I50.32 - Chronic diastolic (congestive) heart failure Code(s): I50.9 - Heart failure, unspecified Status: Acute Assessment and Plan: Stable without exacerbation. (7) CAD (coronary artery disease): Qualifiers: Coronary Disease-Associated Artery/Lesion type: [place] artery [place] vs. transplanted heart: [place] heart Associated angina: without angina Qualified Code(s): I25.10 - Atherosclerotic heart disease of [place] coronary artery without angina pectoris Code(s): I25.10 - Atherosclerotic heart disease of [place] coronary artery without angina pectoris Status: Acute Assessment and Plan: No acute issue. Stable. (8) GERD (gastroesophageal reflux disease): Qualifiers: Esophagitis presence: esophagitis presence not specified Qualified Code(s): K21.9 - Gastro-esophageal reflux disease without esophagitis Code(s): K21.9 - Gastro-esophageal reflux disease without esophagitis Status: Acute Assessment and Plan: Continue Pepcid. (9) Hypothyroid: Qualifiers: Hypothyroidism type: unspecified Qualified Code(s): E03.9 - Hypothyroidism, unspecified Code(s): E03.9 - Hypothyroidism, unspecified Status: Acute Assessment and Plan: Stable. Will continue home levothyroxine. DS: Summary Time Spent with Patient Time attestation: Total time spent providing and/or coordinating discharge services:38 minutes on day of discharge Exam Narrative: Exam Narrative: Awake and alert. Const: General: no acute distress; No confusion Orientation/consciousness: patient oriented x3 and No confusion Resp: Auscultation: clear to auscultation bilaterally, no rales and no wheezes Cardio: Rate: regular rate Rhythm: regular rhythm GI: Inspection: non-distended Auscultation: normal bowel sounds Skin: Other: Bruising noted. Neuro: General: patient oriented x3 and No confusion Cranial nerves: Yes Equal, round and reactive pupils present Cognition (Neuro): normal cognition Speech: normal speech Motor exam (neuro): Normal motor muscle tone present throughout Extrem: General: no edema Psych:
[2019-11-11 14:00] VITALS: BP 111/60; PULSE 87; RESP 19; TEMP 36.1; O2SAT 100
== END 2019-11-11 14:57 | disposition home health service (06) | DRG 442 ==
LOC: ANHED 11-08 00:24 → ANHIMU 11-08 03:59 → ANH2MED 11-09 08:37 → ANHIMU 11-13 09:03
PROVIDERS: Hospitalist; Admitting Provider Internal Medicine; Emergency Provider General Practice; PCP Internal Medicine; Visit Provider Family Medicine
DX: K72.00 Acute and subacute hepatic failure without coma (principal); N17.9 Acute kidney failure, unspecified; R18.8 Other ascites; I50.32 Chronic diastolic (congestive) heart failure; K74.60 Unspecified cirrhosis of liver; K75.81 Nonalcoholic steatohepatitis (NASH); I25.10 Atherosclerotic heart disease of native coronary artery without angina pectoris; K21.9 Gastro-esophageal reflux disease without esophagitis; E03.9 Hypothyroidism, unspecified; M32.9 Systemic lupus erythematosus, unspecified; J42 Unspecified chronic bronchitis; L40.9 Psoriasis, unspecified; H26.9 Unspecified cataract; I25.2 Old myocardial infarction; Z90.49 Acquired absence of other specified parts of digestive tract; Z98.84 Bariatric surgery status; E87.5 Hyperkalemia
CPT/HCPCS: 36415; 36600; 51701; 70450; 71045; 74176; 80048; 80053; 80307; 81003; 82140; 82805; 82948; 83605; 84484; 85025; 85610; 85730; 87040; 87081; 93005; 96361; 96374; 96375; 99291; A9270; J0610; J1815; J2405; J2550; J3370; J7030